=== PATIENT | female | born 1960 | race African-American/Black ===

== ENCOUNTER 2021-12-28 04:33 | Emergency (ER) | payer SELFPAY ==
[2021-12-28] VITALS (10 sets, daily range): BP systolic 144–192; BP diastolic 83–126
[2021-12-28] MEDS ORDERED: PROAIR HFA IN (05:14)
[2021-12-28] MEDS ORDERED: BENADRYL 25MG C25 MG PO (05:15)
[2021-12-28] MEDS ORDERED: ZYRTEC10 M5 PO (05:15)
[2021-12-28 05:25] LABS: URINE BILIRUBIN - DIPSTICK NEGATIVE (NEGATIVE); URINE BLOOD DIPSTICK TRACE-INTACT (NEGATIVE); URINE COLOR YELLOW; URINE GLUCOSE - DIPSTICK NEGATIVE (NEGATIVE); URINE KETONE NEGATIVE (NEGATIVE); URINE SPECIFIC GRAVITY 1.015; URINE UROBILINOGEN - DIPSTICK 0.2 E.U./dL (0.2)
[2021-12-28 05:28] LABS: HEMATOCRIT 34.9 % (37.0-47.0); HEMOGLOBIN 11.5 g/dl (12.0-16.0); IMMATURE GRANULOCYTES 0.1 % (0.0-5.0); MEAN CELL VOLUME 68.8 fL CALC (80.0-100.0); MEAN CORPUSCULAR HGB 22.7 pG CALC (26.0-32.0); NEUT# 5.08 thou/uL (2.00-7.15); RED BLOOD COUNT 5.07 mill/uL (4.20-5.60); RED CELL DISTRI WIDTH 15.9 % (11.5-15.5)
[2021-12-28 05:38] LABS: URINE LEUK ESTERASE SMALL (NEGATIVE); URINE NITRITE - DIPSTICK NEGATIVE (Negative); URINE PROTEIN - DIPSTICK NEGATIVE (NEG-TRACE)
[2021-12-28 05:40] LABS: URINE BACTERIA FEW hpf; URINE EPITHELIAL CELLS FEW EPI/hpf (0-FEW)
[2021-12-28 06:05] LABS: ALBUMIN 4.2 g/dL (3.2-5.0); ALKALINE PHOSPHATASE 103 u/l (38-126); ANION GAP 10 (6-22 (CALC)); BILIRUBIN, TOTAL 0.5 mg/dL (0.0-1.4); BUN 25 mg/dL (8-23); BUN/CREATININE RATIO 22 (12-20 (CALC)); CARBON DIOXIDE 28 mmol/l (22-30); CHLORIDE 102 mmol/l (95-108); CREATININE 1.1 mg/dL (0.5-1.0); GFR FOR AFR.AMER. > 60 ML/MIN (>=60 (CALC)); GFR OTHER RACES 50 ML/MIN (>=60 (CALC)); POTASSIUM 3.4 mmol/l (3.5-5.1); SGOT/AST 33 u/l (9-36); SODIUM 137 mmol/l (137-146); TOTAL PROTEIN 7.4 g/dL (6.3-8.2)
[2021-12-28] MEDS ORDERED: KEFLEX500 MG PO (06:26)
[2021-12-28] MEDS ORDERED: BENADRY2 EX (06:27)
[2021-12-28 07:10] LABS: MYOGLOBIN 108 ng/mL (0 - 62)
== END 2021-12-28 08:46 | disposition home or self-care (01) | DRG 607 ==
LOC: ED 04:33
PROVIDERS: Emergency Medicine
DX: L29.9 Pruritus, unspecified (principal); N39.0 Urinary tract infection, site not specified

== ENCOUNTER 2022-01-05 21:35 | Emergency (ER) | payer SELFPAY ==
[~2022-01-05] VITALS: Ht 160 cm; Wt 54.5 kg
[~2022-01-05 21:35] MED LIST: BENADRY2 EX; BENADRYL 25MG C25 MG PO; KEFLEX500 MG PO; PROAIR HFA IN; ZYRTEC10 M5 PO
[2022-01-05] MEDS ORDERED: TRIAMCINOLON0.0252 EX (23:22)
[2022-01-05 23:25] VITALS: BP 135/91
[2022-01-05 23:31] VITALS: BP 132/89
[2022-01-06] VITALS: BP 125/93
[2022-01-06 00:30] VITALS: BP 136/77
[2022-01-06 01:01] VITALS: BP 168/94
[2022-01-06 01:18] VITALS: BP 154/100
[2022-01-06 01:19] VITALS: BP 179/105
== END 2022-01-06 01:22 | disposition home or self-care (01) | DRG 607 ==
LOC: ED 21:35
DX: L29.9 Pruritus, unspecified (principal); F17.200 Nicotine dependence, unspecified, uncomplicated

== ENCOUNTER 2022-01-10 15:03 | Emergency (ER) | payer SELFPAY ==
[~2022-01-10] VITALS: Ht 160 cm; Wt 50.0 kg
[~2022-01-10 15:03] MED LIST changes: +TRIAMCINOLON0.0252 EX
[2022-01-10 15:27] VITALS: BP 121/72
[2022-01-10 16:14] VITALS: BP 121/72
== END 2022-01-10 16:34 | disposition home or self-care (01) | DRG 153 ==
LOC: ED 15:03
DX: J02.9 Acute pharyngitis, unspecified (principal); K02.9 Dental caries, unspecified; F17.200 Nicotine dependence, unspecified, uncomplicated; T36.1X6A Underdosing of cephalosporins and other beta-lactam antibiotics, initial encounter; Z91.128 Patient's intentional underdosing of medication regimen for other reason
CPT/HCPCS: J0561

== ENCOUNTER 2022-01-13 17:43 | Emergency (ER) | payer SELFPAY ==
[~2022-01-13] VITALS: Ht 160 cm; Wt 54.0 kg
[2022-01-13 17:48] VITALS: BP 153/88
[2022-01-13 18:02] VITALS: BP 163/90
[2022-01-13] MEDS ORDERED: IMODIUM2 MG PO (18:15)
[2022-01-13] MEDS ORDERED: BACTRIM DS1 TAB PO (18:15)
[2022-01-13 18:16] VITALS: BP 161/133
[2022-01-13 19:08] LABS: HEMATOCRIT 39.2 % (37.0-47.0); HEMOGLOBIN 12.3 g/dl (12.0-16.0); IMMATURE GRANULOCYTES 0.1 % (0.0-5.0); MEAN CELL VOLUME 70.6 fL CALC (80.0-100.0); MEAN CORPUSCULAR HGB 22.2 pG CALC (26.0-32.0); MEAN CORPUSCULAR HGB CONC 31.4 g/dL CAL (32.0-36.0); NEUT# 4.41 thou/uL (2.00-7.15); RED BLOOD COUNT 5.55 mill/uL (4.20-5.60); RED CELL DISTRI WIDTH 15.8 % (11.5-15.5)
[2022-01-13 19:09] LABS: URINE BILIRUBIN - DIPSTICK NEGATIVE (NEGATIVE); URINE BLOOD DIPSTICK SMALL (NEGATIVE); URINE COLOR YELLOW; URINE GLUCOSE - DIPSTICK NEGATIVE (NEGATIVE); URINE KETONE NEGATIVE (NEGATIVE); URINE PROTEIN - DIPSTICK NEGATIVE (NEG-TRACE); URINE UROBILINOGEN - DIPSTICK 0.2 E.U./dL (0.2)
[2022-01-13 19:12] LABS: URINE LEUK ESTERASE MODERATE (NEGATIVE); URINE NITRITE - DIPSTICK POSITIVE (Negative)
[2022-01-13 19:19] LABS: URINE BACTERIA MANY hpf; URINE SQUAMOUS EPITHELIAL CELL FEW EPI/hpf (0-FEW); URINE WBC 50-100 WBC/hpf (0-5)
[2022-01-13 19:21] LABS: ALBUMIN 4.4 g/dL (3.2-5.0); BILIRUBIN, TOTAL 0.3 mg/dL (0.0-1.4); CREATININE 1.2 mg/dL (0.5-1.0)
[2022-01-13 19:24] LABS: POTASSIUM 4.1 mmol/l (3.5-5.1)
[2022-01-13] MEDS ORDERED: PROAIR HFA108 MCG/AC INHW/SPAC (19:37)
[2022-01-13] MEDS ORDERED: AMPICILLIN500 MG PO (19:37)
[2022-01-13 20:03] VITALS: BP 161/133
[2022-01-14] MEDS ORDERED: ZPAK PO ×2 (08:08→08:09)
[2022-01-14] MEDS ORDERED: PROAIR HFA108 MCG/AC PO ×2 (08:08→08:09)
[2022-01-14] MEDS ORDERED: PREDNISONE50 MG PO ×2 (08:08→08:09)
== END 2022-01-13 20:57 | disposition home or self-care (01) | DRG 690 ==
LOC: ED 17:43
PROVIDERS: Emergency Medicine
DX: N39.0 Urinary tract infection, site not specified (principal); R19.7 Diarrhea, unspecified; F17.200 Nicotine dependence, unspecified, uncomplicated

== ENCOUNTER 2022-01-14 07:21 | Emergency (ER) | payer SELFPAY ==
[~2022-01-14] VITALS: Ht 160 cm; Wt 59.0 kg
[~2022-01-14 07:21] MED LIST changes: +AMPICILLIN500 MG PO; +BACTRIM DS1 TAB PO; +IMODIUM2 MG PO; +PROAIR HFA108 MCG/AC INHW/SPAC
[2022-01-14] MEDS ORDERED: PREDNISONE50 MG PO ×2 (08:08→08:09)
[2022-01-14] MEDS ORDERED: ZPAK PO ×2 (08:08→08:09)
[2022-01-14] MEDS ORDERED: PROAIR HFA108 MCG/AC PO ×2 (08:08→08:09)
[2022-01-14 08:18] VITALS: BP 173/87
== END 2022-01-14 08:35 | disposition home or self-care (01) | DRG 153 ==
LOC: ED 07:21
DX: J06.9 Acute upper respiratory infection, unspecified (principal); I10 Essential (primary) hypertension; F17.200 Nicotine dependence, unspecified, uncomplicated

== ENCOUNTER 2022-06-22 23:42 | Emergency (ER) | payer SELFPAY ==
[~2022-06-22] VITALS: Ht 160 cm; Wt 54.0 kg
[~2022-06-22 23:42] MED LIST changes: +PREDNISONE50 MG PO; +PROAIR HFA108 MCG/AC PO; +ZPAK PO
[2022-06-22 23:54] VITALS: BP 172/103
[2022-06-23 00:01] VITALS: BP 166/95
[2022-06-23 00:15] VITALS: BP 181/103
[2022-06-23 01:10] LABS: BASO% 0.6 % (0-3); EOS% 9.3 % (0-8); HEMATOCRIT 42.6 % (37.0-47.0); IMMATURE GRANULOCYTES 0.1 % (0.0-5.0); LYMPH% 35.8 % (15-41); MEAN CELL VOLUME 71.7 fL CALC (80.0-100.0); MEAN CORPUSCULAR HGB 21.9 pG CALC (26.0-32.0); MEAN CORPUSCULAR HGB CONC 30.5 g/dL CAL (32.0-36.0); MONO% 5.4 % (2-13); NEUT# 4.83 thou/uL (2.00-7.15); NEUT% 48.8 % (42-76); RED BLOOD COUNT 5.94 mill/uL (4.20-5.60); RED CELL DISTRI WIDTH 18.3 % (11.5-15.5)
[2022-06-23 01:18] LABS: URINE BILIRUBIN - DIPSTICK NEGATIVE (NEGATIVE); URINE BLOOD DIPSTICK TRACE-INTACT (NEGATIVE); URINE COLOR YELLOW; URINE GLUCOSE - DIPSTICK NEGATIVE (NEGATIVE); URINE KETONE NEGATIVE (NEGATIVE); URINE PROTEIN - DIPSTICK NEGATIVE (NEG-TRACE); URINE SPECIFIC GRAVITY 1.015; URINE UROBILINOGEN - DIPSTICK 0.2 E.U./dL (0.2)
[2022-06-23 01:23] LABS: URINE LEUK ESTERASE LARGE (NEGATIVE); URINE NITRITE - DIPSTICK NEGATIVE (Negative)
[2022-06-23 01:28] LABS: URINE BACTERIA FEW hpf; URINE SQUAMOUS EPITHELIAL CELL FEW EPI/hpf (0-FEW)
[2022-06-23 01:36] LABS: ALBUMIN 4.7 g/dL (3.2-5.0); ALKALINE PHOSPHATASE 102 u/l (38-126); ANION GAP 12 (6-22 (CALC)); BILIRUBIN, TOTAL 0.2 mg/dL (0.02-1.3); BUN 19 mg/dL (8-23); BUN/CREATININE RATIO 19 (12-20 (CALC)); CARBON DIOXIDE 30 mmol/l (22-30); CHLORIDE 103 mmol/l (95-108); GFR FOR AFR.AMER. > 60 ML/MIN (>=60 (CALC)); GFR OTHER RACES 56 ML/MIN (>=60 (CALC)); POTASSIUM 3.5 mmol/l (3.5-5.1); SGOT/AST 36 u/l (9-36); SODIUM 141 mmol/l (137-146)
[2022-06-23] MEDS ORDERED: MEDDOSEPAK PO (01:54)
[2022-06-23] MEDS ORDERED: MACROBID100 M1 PO (01:54)
[2022-06-23] MEDS ORDERED: NAPROXEN500 MG PO (01:56)
[2022-06-23 02:16] VITALS: BP 181/103
[2022-06-24] MEDS ORDERED: VENTOLIN HFA IN (04:50)
== END 2022-06-23 02:23 | disposition home or self-care (01) | DRG 202 ==
LOC: ED 23:42
PROVIDERS: Emergency Medicine
DX: J45.901 Unspecified asthma with (acute) exacerbation (principal); N39.0 Urinary tract infection, site not specified; S33.5XXA Sprain of ligaments of lumbar spine, initial encounter; X58.XXXA Exposure to other specified factors, initial encounter; B95.62 Methicillin resistant Staphylococcus aureus infection as the cause of diseases classified elsewhere

== ENCOUNTER 2022-06-24 03:21 | Emergency (ER) | payer SELFPAY ==
[~2022-06-24 03:21] MED LIST changes: +MACROBID100 M1 PO; +MEDDOSEPAK PO; +NAPROXEN500 MG PO
[2022-06-24] MEDS ORDERED: VENTOLIN HFA IN (04:50)
== END 2022-06-24 03:32 | disposition left against medical advice (07) | DRG 951 ==
LOC: ED 03:21 → LWOBS 03:30
DX: Z53.21 Procedure and treatment not carried out due to patient leaving prior to being seen by health care provider (principal)

== ENCOUNTER 2022-06-24 04:11 | Emergency (ER) | payer SELFPAY ==
[~2022-06-24] VITALS: Ht 160 cm; Wt 54.0 kg
[2022-06-24 04:32] VITALS: BP 148/77
[2022-06-24] MEDS ORDERED: VENTOLIN HFA IN (04:50)
== END 2022-06-24 05:11 | disposition home or self-care (01) | DRG 203 ==
LOC: ED 04:11
DX: J45.909 Unspecified asthma, uncomplicated (principal); F17.210 Nicotine dependence, cigarettes, uncomplicated; I10 Essential (primary) hypertension

== ENCOUNTER 2022-07-02 23:41 | Emergency (ER) | payer SELFPAY ==
[~2022-07-02] VITALS: Ht 160 cm; Wt 40.0 kg
[~2022-07-02 23:41] MED LIST changes: +VENTOLIN HFA IN
[2022-07-03 00:05] VITALS: BP 181/107
[2022-07-03 00:06] VITALS: BP 179/114
[2022-07-03] MEDS ORDERED: ZESTRIL10 M1 PO (00:11)
[2022-07-03] MEDS ORDERED: VENTOLIN HFA IN (00:11)
[2022-07-03] MEDS ORDERED: PENICILLN VK500 MG PO (00:11)
[2022-07-03 00:15] VITALS: BP 186/108
[2022-07-03 00:30] VITALS: BP 196/126
[2022-07-03 00:45] VITALS: BP 186/103
== END 2022-07-03 01:03 | disposition home or self-care (01) | DRG 203 ==
LOC: ED 23:41
DX: J45.901 Unspecified asthma with (acute) exacerbation (principal); F17.210 Nicotine dependence, cigarettes, uncomplicated; I10 Essential (primary) hypertension; K04.7 Periapical abscess without sinus